=== PATIENT | male | born 1990 | race Hispanic/Latino ===

== ENCOUNTER 2021-11-17 18:40 | Inpatient (IN) | payer BC ==
[~2021-11-17] VITALS: Ht 165.1 cm; Wt 90.7 kg
[2021-11-17 20:38] VITALS: BP 146/92
[2021-11-17 20:50] VITALS: BP 146/92
[2021-11-17] MEDS ORDERED: METOPROLOL TART50 MG PO (21:59)
[2021-11-17] MEDS ORDERED: HYDRALAZINE HCL 20 MG/ML VIAL IV PRN (22:45)
[2021-11-17] MEDS ORDERED: CHLORDIAZEPOXIDE HCL 25 MG CAP PO ONE (23:00)
[2021-11-17] MEDS: SODIUM CHLORIDE 0.9% 1000ML 1,000 ML IV SCH (23:08)
[2021-11-18] VITALS (8 sets, daily range): BP systolic 136–160; BP diastolic 80–106
[2021-11-18] MEDS: METOCLOPRAMIDE HCL 10 MG/2ML VIAL IV SCH ×5 (00:02→23:48)
[2021-11-18] MEDS: ONDANSETRON HCL INJ 2MG/ML 2ML 2 MG/ML VIAL IV PRN ×3 (00:03→15:30)
[2021-11-18] MEDS: Morphine 2mg Syringe 2 MG/ML SYR IV PRN ×4 (00:13→21:01)
[2021-11-18] MEDS: LORAZEPAM INJ 2 MG/ML VIAL IV PRN (01:39)
[2021-11-18 05:35] LABS: BASOPHILS % 0.8 % (0.0-1.0); EOSINOPHILS # (AUTO) 0.1 (0.0-0.4); EOSINOPHILS % 2.3 % (0.0-6.0); HEMATOCRIT 38.6 % (38.2-49.6); HEMOGLOBIN 13.2 g/dL (14.0-18.0); LYMPHOCYTES # (AUTO) 2.2 (1.0-3.2); MEAN CORPUSCULAR HEMOGLOBIN 31.4 pg (28-32); MEAN CORPUSCULAR HGB CONC 34.2 g/dL (31-35); MEAN CORPUSCULAR VOLUME 91.9 fL (81-99); MONOCYTES # (AUTO) 0.5 (0.2-0.8); MONOCYTES % 8.8 % (4.4-11.3); NEUTROPHILS # (AUTO) 2.4 (2.1-6.9); NEUTROPHILS % 45.7 % (38.7-80.0); PLATELET COUNT 114 x10e3/uL (140-360); RED CELL DISTRIBUTION WIDTH 16.2 % (11.7-14.4)
[2021-11-18 05:51] LABS: ANION GAP 12.4 mmol/L (8-16); BLOOD UREA NITROGEN < 5 mg/dL (7-26); CALCIUM 7.1 mg/dL (8.4-10.2); CARBON DIOXIDE 23 mmol/L (22-29); CHLORIDE 105 mmol/L (98-107); CREATININE, SERUM 0.77 mg/dL (0.72-1.25); EST GLOMERULAR FILTRATION RATE 117 ML/MIN (60-); GLUCOSE 98 mg/dL (74-118); POTASSIUM 3.4 mmol/L (3.5-5.1); SODIUM 137 mmol/L (136-145)
[2021-11-18 05:52] LABS: BUN/CREATININE RATIO 6 (6-25)
[2021-11-18] MEDS: CHLORDIAZEPOXIDE HCL 25 MG CAP PO SCH ×3 (06:16→17:19)
[2021-11-18] MEDS: SODIUM CHLORIDE 0.9% 1000ML 1,000 ML IV SCH ×3 (06:16→22:17)
[2021-11-18 06:19] LABS: ALBUMIN 2.7 g/dL (3.5-5.0); BILIRUBIN,DIRECT 0.7 mg/dL (0.0-0.5)
[2021-11-18] MEDS ORDERED: POTASSIUM CHLORIDE 20MEQ/100ML 200 ML IV ONE (06:45)
[2021-11-18] MEDS: POTASSIUM CHLORIDE 20MEQ/100ML 100 ML IV SCH ×2 (06:54→08:49)
[2021-11-18] MEDS: KETOROLAC TROMETHAMINE 30 MG/ML VIAL IV PRN ×2 (08:49→17:45)
[2021-11-18] MEDS: METOPROLOL TARTRATE 50 MG TAB PO SCH ×2 (08:49→17:19)
[2021-11-18] MEDS: THIAMINE HCL 100 MG TAB PO SCH (08:49)
[2021-11-18] MEDS: FOLIC ACID 1 MG TAB PO SCH (08:49)
[2021-11-18] MEDS: FAMOTIDINE 20 MG/2 ML VIAL IV SCH (08:49)
[2021-11-19] MEDS: LORAZEPAM INJ 2 MG/ML VIAL IV PRN ×2 (00:03→05:56)
[2021-11-19 00:05] VITALS: BP 180/104
[2021-11-19 05:14] VITALS: BP 167/96
[2021-11-19 05:20] LABS: BASOPHILS % 0.8 % (0.0-1.0); EOSINOPHILS # (AUTO) 0.1 (0.0-0.4); EOSINOPHILS % 2.7 % (0.0-6.0); HEMOGLOBIN 14.7 g/dL (14.0-18.0); LYMPHOCYTES # (AUTO) 1.5 (1.0-3.2); LYMPHOCYTES % 29.5 % (18.0-39.1); MEAN CORPUSCULAR HEMOGLOBIN 31.5 pg (28-32); MEAN CORPUSCULAR HGB CONC 34.2 g/dL (31-35); MEAN CORPUSCULAR VOLUME 92.1 fL (81-99); MONOCYTES # (AUTO) 0.5 (0.2-0.8); MONOCYTES % 8.8 % (4.4-11.3); PLATELET COUNT 122 x10e3/uL (140-360); RED BLOOD COUNT 4.67 x10e6/uL (4.3-5.7)
[2021-11-19 05:45] LABS: ALANINE AMINOTRANSFERASE 141 IU/L (0-55); ALBUMIN 3.1 g/dL (3.5-5.0); ALBUMIN/GLOBULIN RATIO 0.8 (0.8-2.0); ALKALINE PHOSPHATASE 107 IU/L (40-150); ANION GAP 15.2 mmol/L (8-16); BLOOD UREA NITROGEN < 5 mg/dL (7-26); CALCIUM 7.7 mg/dL (8.4-10.2); CARBON DIOXIDE 22 mmol/L (22-29); CHLORIDE 101 mmol/L (98-107); CREATININE, SERUM 0.75 mg/dL (0.72-1.25); EST GLOMERULAR FILTRATION RATE 121 ML/MIN (60-); GLUCOSE 95 mg/dL (74-118); POTASSIUM 3.2 mmol/L (3.5-5.1); SODIUM 135 mmol/L (136-145)
[2021-11-19 06:05] LABS: BUN/CREATININE RATIO 7 (6-25)
[2021-11-19] MEDS: METOCLOPRAMIDE HCL 10 MG/2ML VIAL IV SCH ×2 (06:25→11:59)
[2021-11-19 06:29] LABS: AMYLASE 43 U/L (25-125); LIPASE 39 U/L (8-78)
[2021-11-19 07:15] VITALS: BP 146/89
[2021-11-19] MEDS: SODIUM CHLORIDE 0.9% 1000ML 1,000 ML IV SCH (07:53)
[2021-11-19 08:18] VITALS: BP 146/89
[2021-11-19] MEDS: METOPROLOL TARTRATE 50 MG TAB PO SCH (09:22)
[2021-11-19] MEDS: FOLIC ACID 1 MG TAB PO SCH (09:22)
[2021-11-19] MEDS: FAMOTIDINE 20 MG/2 ML VIAL IV SCH (09:22)
[2021-11-19] MEDS: THIAMINE HCL 100 MG TAB PO SCH (09:22)
[2021-11-19 11:00] VITALS: BP 160/99
[2021-11-19] MEDS ORDERED: POTASSIUM CHLORIDE 20 MEQ TAB CR PO ONE (11:30)
[2021-11-19] MEDS ORDERED: ATIVAN0.5 MG PO (11:31)
[2021-11-19] MEDS ORDERED: VITAMIN B-1100 M1 PO (11:36)
[2021-11-19] MEDS ORDERED: FOLIC ACID0.4 MG PO (11:37)
[2021-11-19] MEDS ORDERED: ONDANSETRON HCL 4 MG ORAL DISINTEGRATING TAB PO PRN (12:30)
[2021-11-19] MEDS ORDERED: METOCLOPRAMIDE HCL 10 MG TAB PO SCH (18:00)
[2021-11-20] MEDS ORDERED: FAMOTIDINE 20 MG TAB PO SCH (07:30)
== END 2021-11-19 12:40 | disposition home or self-care (01) | DRG 439 ==
LOC: MED/SURG 18:40
PROVIDERS: ADMIT Internal Medicine; ATTEND Internal Medicine
DX: K85.20 Alcohol induced acute pancreatitis without necrosis or infection (principal); F10.230 Alcohol dependence with withdrawal, uncomplicated; F10.229 Alcohol dependence with intoxication, unspecified; F41.9 Anxiety disorder, unspecified; I10 Essential (primary) hypertension; E87.6 Hypokalemia; D69.6 Thrombocytopenia, unspecified; Z87.891 Personal history of nicotine dependence
CPT/HCPCS: 36415; 76705; 80048; 80053; 80076; 82150; 83690; 84478; 85025; J0360; J1885; J2060; J2270; J2405; J2765; J3411; J3480; J7030